=== PATIENT | male | born 1965 | race Caucasian/White ===

== ENCOUNTER 2018-05-10 14:11 | Emergency (ER) | payer BC ==
[~2018-05-10] VITALS: Ht 175.3 cm; Wt 110.7 kg
--- NOTE | 2018-05-10 14:22 | NUR ---
PT AMBULATORY TO ROOM 4 W/ C/O L SHOULDER FX. PT HERE FOR CT OF SHOULDER FOR DR. EUCEDA. PT TO SEE ORTHO MD AT [facility] ON SATURDAY. PT RESTING ON [place]. [place].
--- NOTE | 2018-05-10 15:32 | NUR ---
PT CHART REVIEWED AND PLACED FOR RECHECK.
[2018-05-10] MEDS ORDERED: OXYcodone/APAP 5/325MG TABLET ONE (15:47)
[2018-05-10 15:49] VITALS: BP 132/94
[2018-05-10] MEDS ORDERED: OXYcodone/APAP 5/325MG TABLET PO ONE (16:00)
== END 2018-05-10 16:10 | disposition home or self-care (01) ==
LOC: ED 15:16
DX: S42.202A Unspecified fracture of upper end of left humerus, initial encounter for closed fracture (principal); X58.XXXA Exposure to other specified factors, initial encounter; Y93.23 Activity, snow (alpine) (downhill) skiing, snowboarding, sledding, tobogganing and snow tubing; Y92.89 Other specified places as the place of occurrence of the external cause; Y99.8 Other external cause status
CPT/HCPCS: 99284

== ENCOUNTER 2018-07-15 17:11 | Day surgery (SDC) | payer BC ==
[~2018-07-15] VITALS: Ht 175.3 cm; Wt 106.8 kg
[2018-07-15] MEDS ORDERED: LACTATED RINGERS 1,000 ML IV SCH (17:40)
[2018-07-15] MEDS ORDERED: RIFA300C3 PO (17:45)
[2018-07-15] MEDS ORDERED: OMEP-110 PO (17:45)
[2018-07-15] MEDS ORDERED: TRAM50TA2 PO (17:45)
[2018-07-15] MEDS ORDERED: NAPR220C2 PO (17:45)
[2018-07-15] MEDS ORDERED: DAPT500V3 IV (17:45)
[2018-07-15] MEDS ORDERED: DOCU100C33 PO (17:45)
[2018-07-15 17:52] VITALS: BP 153/95
[2018-07-15] MEDS ORDERED: BACITRACIN 50,000 UNIT ONE ×2 (18:39→19:02)
[2018-07-15] MEDS ORDERED: VANCOMYCIN 1,000 MG ONE ×2 (18:39→19:02)
[2018-07-15] MEDS ORDERED: TOBRAMYCIN SULFATE 1.2 GM IMP ONE ×2 (18:44→19:02)
[2018-07-15] MEDS ORDERED: FENTANYL PF 100 MCG/2ML ONE ×3 (19:10→20:15)
[2018-07-15] MEDS ORDERED: MIDAZOLAM 1 MG/ML, 2ML ONE (19:11)
[2018-07-15] MEDS ORDERED: DEXAMETHASONE 4 MG/ML, 1ML ONE (19:21)
[2018-07-15] MEDS ORDERED: OXYcodone 5 MG/5 ML ORAL.SOL UDC PO PRN (19:30)
[2018-07-15] MEDS ORDERED: MEPERIDINE/PF 25MG/0.5ML IVPush PRN (19:30)
[2018-07-15] MEDS ORDERED: PROMETHAZINE 25 MG/ML, 1ML IV PRN (19:30)
[2018-07-15] MEDS ORDERED: hydrALAzine 20 MG/ML, 1ML IV PRN (19:30)
[2018-07-15] MEDS ORDERED: ACETAMINOPHEN 325 MG TABLET PO PRN (19:30)
[2018-07-15] MEDS ORDERED: LABETALOL 5MG/ML, 20ML IV PRN (19:30)
[2018-07-15] MEDS ORDERED: ONDANSETRON 2MG/ML, 2ML IV PRN (19:30)
[2018-07-15] MEDS ORDERED: PROPOFOL 10 MG/ML, 20ML ONE (19:49)
[2018-07-15] MEDS ORDERED: SUCCINYLCHOLINE 20 MG/ML, 10ML ONE (19:49)
[2018-07-15] MEDS ORDERED: hydrALAzine 20 MG/ML, 1ML ONE (19:53)
[2018-07-15] MEDS ORDERED: ROCURONIUM 10MG/ML,5ML ONE (19:59)
[2018-07-15] MEDS ORDERED: MORPHINE SULFATE 4 MG/ML, 1ML ONE (20:01)
[2018-07-15] MEDS ORDERED: NEOSPORIN OINT, 15GM ONE (20:02)
[2018-07-15] MEDS ORDERED: ACETAMINOPHEN 650 MG/20.3 ML UDC ONE (20:15)
[2018-07-15] MEDS ORDERED: OXYcodone 5 MG/5 ML ORAL.SOL UDC ONE (20:15)
[2018-07-15] MEDS: FENTANYL PF 100 MCG/2ML IV PRN ×2 (20:15→20:25)
[2018-07-15] MEDS ORDERED: HYDROmorphone 2 MG/ML, 1ML ONE (20:25)
[2018-07-15] MEDS ORDERED: LABETALOL 20 MG/4 ML IV PRN (20:30)
[2018-07-15] MEDS: HYDROmorphone 2 MG/ML, 1ML IVPush PRN ×3 (20:30→21:00)
[2018-07-15] MEDS ORDERED: KETOROLAC 30 MG/1 ML ONE (20:47)
[2018-07-15] MEDS ORDERED: KETOROLAC 30 MG/1 ML IV PRN (21:00)
[2018-07-15] MEDS ORDERED: DAPTOMYCIN 900 MG in SODIUM CHLORIDE 0.9% 100 ML IV ONE (21:00)
[2018-07-15] MEDS: DAPTOMYCIN MC SCH (22:00)
[2018-07-15] MEDS ORDERED: RIFAMPIN 300 MG CAPSULE ONE (22:51)
[2018-07-15] MEDS ORDERED: RIFAMPIN 300 MG CAPSULE PO SCH (23:00)
[2018-07-16 00:12] VITALS: BP 133/81
[2018-07-16] MEDS: OXYcodone IR 5MG TABLET PO PRN ×2 (00:32→04:50)
[2018-07-16] MEDS ORDERED: KETOROLAC 30 MG/1 ML IVPush SCH (03:00)
[2018-07-16 04:08] VITALS: BP 134/80
[2018-07-16] MEDS: DAPTOMYCIN MC SCH (05:42)
[2018-07-16] MEDS ORDERED: OMEPRAZOLE 20 MG CAPSULE.DR PO SCH (06:00)
[2018-07-16] MEDS ORDERED: OXYC5TAB3 PO (08:16)
[2018-07-16 08:21] VITALS: BP 151/89
[2018-07-16] MEDS ORDERED: RIFAMPIN 300 MG CAPSULE PO SCH (09:00)
[2018-07-16] MEDS ORDERED: DOCUSATE 100 MG CAPSULE PO SCH (09:00)
[2018-07-21] MEDS ORDERED: NAPROXEN 500 MG TABLET PO PRN (08:00)
== END 2018-07-16 09:05 | disposition home or self-care (01) ==
LOC: OR 17:11 → 4NOR 19:14 → DCLOUNGE 07-16 08:55
PROVIDERS: ADMIT Orthopaedic Surgery; ATTEND Orthopaedic Surgery
DX: T84.611A Infection and inflammatory reaction due to internal fixation device of left humerus, initial encounter (principal); Z79.899 Other long term (current) drug therapy; Y83.8 Other surgical procedures as the cause of abnormal reaction of the patient, or of later complication, without mention of misadventure at the time of the procedure
CPT/HCPCS: 10180; 87070; 87075; 87076; 87205; J0330; J0360; J0878; J1100; J1170; J1885; J2250; J2270; J2704; J3010; J3260; J3370; J3490; J7120; G0378

== ENCOUNTER 2018-08-05 11:06 | Inpatient (IN) | payer BC ==
[~2018-08-05] VITALS: Ht 175.3 cm; Wt 106.1 kg
[~2018-08-05 11:06] MED LIST: DAPT500V3 IV; DOCU100C33 PO; NAPR220C2 PO; OMEP-110 PO; OXYC5TAB3 PO; RIFA300C3 PO; TRAM50TA2 PO
[2018-08-05 11:40] VITALS: BP 144/94
[2018-08-05] MEDS ORDERED: LACTATED RINGERS 1,000 ML IV SCH (11:50)
[2018-08-05] MEDS ORDERED: FENTANYL PF 250 MCG/5ML ONE (13:04)
[2018-08-05] MEDS ORDERED: MIDAZOLAM 1 MG/ML, 2ML ONE (13:04)
[2018-08-05] MEDS ORDERED: KETOROLAC 30 MG/1 ML ONE (13:37)
[2018-08-05] MEDS ORDERED: MEPERIDINE/PF 25MG/0.5ML IVPush PRN (14:00)
[2018-08-05] MEDS ORDERED: PROMETHAZINE 25 MG/ML, 1ML IV PRN (14:00)
[2018-08-05] MEDS ORDERED: ONDANSETRON ODT 8 MG PO PRN (14:00)
[2018-08-05] MEDS ORDERED: HYDROmorphone 2 MG/ML, 1ML IVPush PRN ×2 (14:00→15:30)
[2018-08-05] MEDS ORDERED: PROMETHAZINE 25 MG SUPP PR PRN (14:00)
[2018-08-05] MEDS ORDERED: ACETAMINOPHEN 325 MG TABLET PO PRN (14:00)
[2018-08-05] MEDS ORDERED: ONDANSETRON 2MG/ML, 2ML IV PRN (14:00)
[2018-08-05] MEDS ORDERED: OXYcodone 5 MG/5 ML ORAL.SOL UDC PO PRN (14:00)
[2018-08-05] MEDS ORDERED: DEXAMETHASONE 4 MG/ML, 1ML ONE (14:16)
[2018-08-05] MEDS ORDERED: CEFAZOLIN 1,000 MG ONE (14:16)
[2018-08-05] MEDS ORDERED: PROPOFOL 10 MG/ML, 20ML ONE (14:16)
[2018-08-05] MEDS ORDERED: ONDANSETRON 2MG/ML, 2ML ONE (14:16)
[2018-08-05] MEDS ORDERED: FENTANYL PF 100 MCG/2ML ONE ×2 (14:18→15:21)
[2018-08-05] MEDS ORDERED: MEPERIDINE/PF 50 MG/ML ONE (14:54)
[2018-08-05] MEDS ORDERED: OXYcodone 5 MG/5 ML ORAL.SOL UDC ONE (15:21)
[2018-08-05] MEDS: FENTANYL PF 100 MCG/2ML IV PRN ×2 (15:25→15:30)
[2018-08-05] MEDS ORDERED: ONDANSETRON 2MG/ML, 2ML IVPush PRN (15:30)
[2018-08-05] MEDS ORDERED: HYDROmorphone 2 MG/ML, 1ML ONE (15:36)
[2018-08-05] MEDS ORDERED: LABETALOL 5MG/ML, 20ML IV PRN (16:30)
[2018-08-05 19:58] VITALS: BP 118/81
[2018-08-05] MEDS ORDERED: DAPTOMYCIN 900 MG in SODIUM CHLORIDE 0.9% 100 ML IV SCH (20:00)
[2018-08-05] MEDS ORDERED: RIFAMPIN 300 MG CAPSULE PO SCH (21:00)
[2018-08-05] MEDS: CEFTRIAXONE PMX 2GM/50ML 50 ML IV SCH (21:27)
[2018-08-05] MEDS: OXYcodone IR 5MG TABLET PO PRN (21:38)
[2018-08-05] MEDS: DOCUSATE 100 MG CAPSULE PO SCH (21:38)
[2018-08-06] VITALS: BP 116/75
[2018-08-06] MEDS: OXYcodone IR 5MG TABLET PO PRN ×3 (01:31→20:38)
[2018-08-06 05:13] VITALS: BP 136/73
[2018-08-06 05:32] LABS: BASOPHILS # (AUTO) 0.03 x10^3/uL (0-0.1); BASOPHILS % (AUTO) 1 % (0-1); EOSINOPHILS # (AUTO) 0.18 x10^3/uL (0-0.4); EOSINOPHILS % (AUTO) 3 % (1-7); LYMPHOCYTES # (AUTO) 1.04 x10^3/uL (1-3.4); LYMPHOCYTES % (AUTO) 18 % (22-44); MD NO; MEAN CORPUSCULAR HEMOGLOBIN 28.5 pg (27.5-34.5); MEAN CORPUSCULAR HGB CONC 33.8 g/dL (33.2-36.2); MEAN CORPUSCULAR VOLUME 84.2 fL (81-97); MEAN PLATELET VOLUME 8.2 fL (7.4-10.4); MONOCYTES # (AUTO) 0.38 x10^3/uL (0.2-0.8); MONOCYTES % (AUTO) 7 % (2-9); NEUTROPHILS # (AUTO) 4.18 x10^3/uL (1.8-6.8); NEUTROPHILS % (AUTO) 72 % (42-75); PLATELET COUNT 195 x10^3/uL (130-400); RED BLOOD COUNT 3.74 x10^6/uL (4.38-5.82); RED CELL DISTRIBUTION WIDTH 14.7 % (9.4-14.8)
[2018-08-06 05:39] LABS: CHLORIDE 110 mmol/L (98-107)
[2018-08-06] MEDS: OMEPRAZOLE 20 MG CAPSULE.DR PO SCH (05:48)
[2018-08-06] MEDS: NAPROXEN 500 MG TABLET PO PRN ×2 (05:48→17:34)
[2018-08-06 05:50] LABS: ALANINE AMINOTRANSFERASE 17 U/L (12-78); ALBUMIN 3.1 g/dL (3.4-5.0); ALKALINE PHOSPHATASE 75 U/L (45-117); ANION GAP 5 mmol/L (5-15); BILIRUBIN,TOTAL 0.4 mg/dL (0.2-1.0); C-REACTIVE PROTEIN, QUANT 0.73 mg/dL (0.02-0.49); CALCIUM 8.2 mg/dL (8.5-10.1); CREATINE KINASE, TOTAL 81 U/L (39-308); CREATININE 0.69 mg/dL (0.7-1.3); TOTAL PROTEIN 5.8 g/dL (6.4-8.2)
[2018-08-06 06:17] LABS: HCT (SEDRATE) 31.5 % (39.2-51.8)
[2018-08-06 07:20] VITALS: BP 112/64
[2018-08-06] MEDS: DOCUSATE 100 MG CAPSULE PO SCH ×2 (08:32→20:38)
[2018-08-06 13:04] VITALS: BP 123/85
[2018-08-06 20:32] VITALS: BP 112/69
[2018-08-06] MEDS: CEFTRIAXONE PMX 2GM/50ML 50 ML IV SCH (20:45)
[2018-08-07 01:47] VITALS: BP 102/55
[2018-08-07] MEDS: OXYcodone IR 5MG TABLET PO PRN (02:43)
[2018-08-07] MEDS: OMEPRAZOLE 20 MG CAPSULE.DR PO SCH (06:05)
[2018-08-07 07:20] VITALS: BP 134/81
[2018-08-07] MEDS: DOCUSATE 100 MG CAPSULE PO SCH ×2 (08:29→21:07)
[2018-08-07] MEDS: NAPROXEN 500 MG TABLET PO PRN ×2 (08:29→21:07)
[2018-08-07 14:15] VITALS: BP 117/71
[2018-08-07] MEDS ORDERED: DAPTOMYCIN 650 MG in SODIUM CHLORIDE 0.9% 100 ML IVPB SCH (14:30)
[2018-08-07] MEDS: CEFTRIAXONE PMX 2GM/50ML 50 ML IV SCH (21:07)
[2018-08-07 21:58] VITALS: BP 112/70
[2018-08-08 02:17] VITALS: BP 110/63
[2018-08-08] MEDS: OMEPRAZOLE 20 MG CAPSULE.DR PO SCH (06:37)
[2018-08-08 07:21] VITALS: BP 119/77
[2018-08-08] MEDS: NAPROXEN 500 MG TABLET PO PRN (09:10)
[2018-08-08] MEDS: DOCUSATE 100 MG CAPSULE PO SCH (09:10)
[2018-08-08] MEDS ORDERED: DAPT500V6 IV (11:21)
[2018-08-08] MEDS ORDERED: CEFT2FRO2 IV (11:22)
[2018-08-08] MEDS: CEFTRIAXONE PMX 2GM/50ML 50 ML IV SCH (14:02)
== END 2018-08-08 15:31 | disposition home or self-care (01) | DRG 863 ==
LOC: OUT 11:06 → ORIP 15:15 → 4NOR 17:04 → DCLOUNGE 08-08 15:15
PROVIDERS: ADMIT Orthopaedic Surgery; ATTEND Orthopaedic Surgery
PROC: 0HDCXZZ Extraction of Left Upper Arm Skin, External Approach (ICD-10-PCS; 2018-08-05)
PROC: 3E0T3BZ Introduction of Anesthetic Agent into Peripheral Nerves and Plexi, Percutaneous Approach (ICD-10-PCS; principal; 2018-08-05 13:15)
DX: T81.40XA Infection following a procedure, unspecified, initial encounter (principal); M86.8X2 Other osteomyelitis, upper arm; Y83.8 Other surgical procedures as the cause of abnormal reaction of the patient, or of later complication, without mention of misadventure at the time of the procedure; Z96.612 Presence of left artificial shoulder joint; E78.5 Hyperlipidemia, unspecified; K22.70 Barrett's esophagus without dysplasia; Y92.89 Other specified places as the place of occurrence of the external cause
CPT/HCPCS: 36415; 80053; 82550; 85025; 85651; 86140; 87015; 87070; 87075; 87077; 87102; 87116; 87186; 87205; 87206; G0378; J0690; J0696; J0878; J1100; J1170; J1885; J2175; J2250; J2405; J2704; J3010; J7120

== ENCOUNTER 2018-12-18 08:09 | Day surgery (SDC) | payer BC ==
[~2018-12-18] VITALS: Ht 175.3 cm; Wt 105.1 kg
[~2018-12-18 08:09] MED LIST changes: +BUPIVACAINE/PF 0.5% ONE; +CEFT2FRO2 IV; +DAPT500V6 IV; +EPINEPHRINE 1 MG/ML, 1ML ONE; +FENTANYL PF 100 MCG/2ML ONE; +MIDAZOLAM 1 MG/ML, 2ML ONE; +NEOSPORIN OINT, 15GM ONE
[2018-12-18] MEDS ORDERED: LACTATED RINGERS 1,000 ML IV SCH (08:38)
[2018-12-18] MEDS ORDERED: CEPH-368 PO (08:41)
[2018-12-18 08:57] VITALS: BP 143/99
[2018-12-18] MEDS ORDERED: LIDOCAINE-MPF 2% ,5ML ONE (09:57)
[2018-12-18] MEDS ORDERED: PROMETHAZINE 25 MG/ML, 1ML IM PRN (10:30)
[2018-12-18] MEDS ORDERED: PROMETHAZINE 25 MG/ML, 1ML IV PRN (10:30)
[2018-12-18] MEDS ORDERED: LORazepam 2 MG/ML, 1ML IVPush PRN (10:30)
[2018-12-18] MEDS ORDERED: PROMETHAZINE 25 MG SUPP PR PRN (10:30)
[2018-12-18] MEDS ORDERED: ACETAMINOPHEN 325 MG TABLET PO PRN (10:30)
[2018-12-18] MEDS ORDERED: HYDROmorphone 2 MG/ML, 1ML IVPush PRN (10:30)
[2018-12-18] MEDS ORDERED: ONDANSETRON ODT 8 MG PO PRN (10:30)
[2018-12-18] MEDS ORDERED: OXYcodone 5 MG/5 ML ORAL.SOL UDC PO PRN (10:30)
[2018-12-18] MEDS ORDERED: MEPERIDINE/PF 25MG/ML,1ML IVPush PRN (10:30)
[2018-12-18] MEDS ORDERED: ONDANSETRON 2MG/ML, 2ML IV PRN (10:30)
[2018-12-18] MEDS ORDERED: ONDANSETRON 2MG/ML, 2ML ONE (11:00)
[2018-12-18] MEDS ORDERED: DEXAMETHASONE 4 MG/ML, 1ML ONE (11:00)
[2018-12-18] MEDS ORDERED: CEFAZOLIN 1,000 MG ONE (11:00)
[2018-12-18] MEDS ORDERED: PROPOFOL 10 MG/ML, 20ML ONE (11:00)
[2018-12-18] MEDS ORDERED: ACETAMINOPHEN 325 MG TABLET ONE (11:23)
[2018-12-18] MEDS ORDERED: ACETAMINOPHEN 650 MG/20.3 ML UDC ONE (11:23)
[2018-12-18] MEDS ORDERED: OXYcodone 5 MG/5 ML ORAL.SOL UDC ONE (11:24)
[2018-12-18] MEDS ORDERED: FENTANYL PF 100 MCG/2ML ONE (11:27)
[2018-12-18] MEDS: FENTANYL PF 100 MCG/2ML IV PRN ×2 (11:30→11:40)
[2018-12-18] MEDS ORDERED: KETOROLAC 30 MG/1 ML ONE (11:35)
[2018-12-18] MEDS: LABETALOL 5MG/ML, 20ML IV PRN ×2 (11:54→12:13)
[2018-12-18] MEDS ORDERED: KETOROLAC 30 MG/1 ML IVPush ONE (12:00)
[2018-12-18] MEDS ORDERED: hydrALAzine 20 MG/ML, 1ML IV PRN (12:00)
[2018-12-18] MEDS ORDERED: hydrALAzine 20 MG/ML, 1ML ONE (12:21)
== END 2018-12-18 14:00 | disposition home or self-care (01) ==
LOC: OUT 08:09
PROVIDERS: ATTEND Orthopaedic Surgery
DX: Z47.2 Encounter for removal of internal fixation device (principal); M25.612 Stiffness of left shoulder, not elsewhere classified; F15.90 Other stimulant use, unspecified, uncomplicated; Z72.89 Other problems related to lifestyle
CPT/HCPCS: 20680; 23700; 64415; 73020; 76000; 87070; 87075; 87102; 87116; 87176; 87205; 87206; J0171; J0690; J1100; J1885; J2250; J2405; J2704; J3010; J7120